=== PATIENT | male | born 1980 | race Caucasian/White ===

== ENCOUNTER 2023-04-09 09:57 | Emergency (ER) | payer OTHER, SELFPAY ==
[2023-04-09 10:09] VITALS: BP 154/103; PULSE 123; RESP 16; TEMP 37.2; O2SAT 99
[2023-04-09 10:14] VITALS: BP 154/103; PULSE 123; RESP 16; TEMP 37.2; O2SAT 99
--- NOTE | 2023-04-09 10:56 | ED.GENADULT ---
HPI - General Adult General Chief complaint: Extremity Injury, Upper Stated complaint: right hand issue Source: patient Mode of arrival: ambulatory Limitations: no limitations History of Present Illness HPI narrative: Patient presents for evaluation of bruise wounds that occurred to the right hand that occurred 8 days ago. He was taking trays out of the oven when he accidentally burned the 2nd and 3rd digits of the right hand. He reports throbbing pain in both digits. He states that areas are starting to scab over. She denies any purulence, fever, chills, nausea, vomiting. He is ambidextrous. He is not diabetic. He smokes approximately 1 pack per day. No loss of range of motion. No paresthesias. Date of last tetanus unknown. Related Data Home Medications Medication Instructions Recorded Confirmed Htn Med. 04/09/23 Inhaler 04/09/23 Allergies Allergy/AdvReac Type Severity Reaction Status Date / Time amoxicillin Allergy Mild Unknown Verified 04/09/23 10:00 Penicillins Allergy Mild Unknown Verified 04/09/23 10:00 Review of Systems Review of Systems: CONSTITUTIONAL: Denies fever, chills, or sweats. EYES: Denies visual changes, redness, or discharge. ENT: Denies rhinorrhea, congestion, sore throat, or otalgia. CARDIOVASCULAR: Denies chest pain, palpitations, or edema. RESPIRATORY: Denies cough or dyspnea. GASTROINTESTINAL: Denies abdominal pain, nausea, vomiting, or diarrhea. GENITOURINARY: Denies dysuria or hematuria. SKIN: Reports burn wounds to the 2nd and 3rd digits of right hand. MUSCULOSKELETAL: Reports pain in 2nd and 3rd digits of right hand. Denies back pain or joint pain NEUROLOGIC: Denies headache, numbness, dizziness, or weakness. PSYCHIATRIC: Denies anxiety or depression. [facility] Past Medical History Medical History No pertinent past medical history Surgical History Surgical History No pertinent past surgical history Family History Family History Mother Family history non-contributory Social History Social History Smoking packs per day: 1 Smoking cigarettes per day: 20.0 Smoking status: Current every day smoker Alcohol intake: current Additional living arrangements comments: lives with girlfriend Additional occupation/education comments: works in [employer] Gender identity (if verbalized by the patient): Male Sexual Orientation (if Verbalized by the Patient): Straight or Heterosexual Spiritual care concerns: No Exam Narrative: GENERAL: Well-appearing, well-nourished, and in no acute distress. HEAD: Normocephalic, atraumatic. EYES: PERRLA and EOMI. ENT: Nares clear, no rhinorrhea or epistaxis. Mucous membranes moist. Oropharynx without tonsillar hypertrophy exudate or other lesions. Bilateral TMs pearly leigh nonbulging NECK: Supple. No adenopathy or masses. No carotid bruits or JVD CHEST: Clear to auscultation. No respiratory distress. No wheezes rales or rhonchi HEART: Regular rate and rhythm. No murmur heard. Normal peripheral pulses. ABDOMEN: Soft, nontender, nondistended, normal active bowel sounds. EXTREMITIES: Normal range of motion. No edema. SKIN: there is a 1.3 x 1.3 cm partial-thickness burn noted to the 2nd digit the right hand. Wound is starting to scab over. There is a 1cm x 1cm partial thickness burn noted to third digit of right hand. Burn wound has scant amount of dried sanguinous drainage present NEURO: No focal deficits. Alert and oriented x3. PSYCH: Normal mood and affect. Course Course Emergency Course: This is a 43 year old male who presented for evaluation of burn wounds to the right hand that occurred 8 days ago. He was updated on tetanus. Will discharge with Silvadene. Increase
[2023-04-09] MEDS: TETANUS,DIPHTHERIA,AC PERTUSSIS ADULT (0.5 ML) BOOSTRIX IM (10:59)
[2023-04-09] MEDS: SILVER SULFADIAZINE 1% CR 50 GM JAR (*BKC) 1 APPLIC TOPICAL (11:00)
== END 2023-04-09 11:08 | disposition home or self-care (01) ==
PROVIDERS: Emergency Provider Nurse Practitioner; PCP Internal Medicine
DX: T23.231A Burn of second degree of multiple right fingers (nail), not including thumb, initial encounter (principal); X15.0XXA Contact with hot stove (kitchen), initial encounter; Z23 Encounter for immunization; F17.210 Nicotine dependence, cigarettes, uncomplicated
CPT/HCPCS: 90471; 90715; 99213; A9270; G0463